=== PATIENT | male | born 1950 | race Caucasian/White ===

== ENCOUNTER → 2017-04-25 | Outpatient (CLI) | payer OTHER ==
[~2017-04-25] MED LIST: IOPAMIDOL (ISOVUE 370) 100 ML BTL IV ONE
[2017-04-25 09:04] LABS: CREATININE 1.1 mg/dL (0.7-1.3); GLOMERULAR FILTRATION RATE > 60
== END ==
LOC: FIMAGING 08:11
PROVIDERS: ATTEND Internal Medicine
DX: I71.2 Thoracic aortic aneurysm, without rupture (principal); R06.02 Shortness of breath
CPT/HCPCS: Q9967

== ENCOUNTER 2018-08-06 13:05 | Inpatient (IN) | payer OTHER ==
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
[2018-08-06] MEDS ORDERED: LET GEL TOPICAL 1 EA SYR TP ONE (13:25)
[2018-08-06] MEDS ORDERED: HYDROmorphONE/DILAUDID 1 MG/ML INJ IVP ONE (13:33)
[2018-08-06 13:39] LABS: PLATELET COUNT 255 10^3/uL (150-400)
[2018-08-06 13:48] LABS: INR 1.05 (0.83-1.16); PROTIME(PATIENT) 13.9 SEC (12.0-15.0)
[2018-08-06] MEDS ORDERED: HYDROmorphONE/DILAUDID 2 MG/ML INJ ONE (13:51)
[2018-08-06] MEDS ORDERED: ONDANSETRON DISINTEGRATING 4 MG TAB PO PRN (14:45)
[2018-08-06] MEDS ORDERED: ONDANSETRON 4 MG/2 ML VIAL IVP PRN ×2 (14:45→20:37)
[2018-08-06] MEDS ORDERED: oxyCODONE IR 5 MG TAB PO ONE (15:29)
[2018-08-06] MEDS ORDERED: oxyCODONE IR 5 MG TAB ONE (15:33)
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
[2018-08-06] MEDS ORDERED: NS 1,000 ML IV SCH (15:45)
--- NOTE | 2018-08-06 15:59 | PDCONSULT ---
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
[2018-08-06] MEDS ORDERED: LR 1,000 ML IV ONE (16:47)
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
[2018-08-06] MEDS ORDERED: BUPIVACAINE 0.5% 30 ML SDV ONE (17:03)
[2018-08-06] MEDS ORDERED: POLYMYXIN B SULFATE 500,000 UNIT/10 ML SYR IRR ONE (17:04)
[2018-08-06] MEDS ORDERED: POLYETHYLENE GLYCOL 3350 17 GM PKT PO PRN (17:23)
[2018-08-06] MEDS ORDERED: BISACODYL 10 MG SUPP PR PRN (17:23)
[2018-08-06] MEDS ORDERED: MAGNESIUM HYDROXIDE 30 ML UDCUP PO PRN (17:23)
[2018-08-06] MEDS ORDERED: fentaNYL 100 MCG/2 ML INJ ONE ×4 (17:58→21:09)
[2018-08-06] MEDS ORDERED: PROPOFOL 200 MG/20 ML VIAL ONE (17:59)
[2018-08-06] MEDS ORDERED: LIDOCAINE 2% 100 MG/5 ML SYR ONE (17:59)
[2018-08-06] MEDS ORDERED: ceFAZolin 2 GM/DEXTROSE 100 ML IV ONE (18:00)
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
[2018-08-06] MEDS ORDERED: MIDAZOLAM 2 MG/2 ML VIAL IVP ONE (18:13)
[2018-08-06] MEDS ORDERED: MIDAZOLAM 2 MG/2 ML VIAL ONE (18:14)
[2018-08-06] MEDS ORDERED: BACITRACIN 50,000 UNITS/10 ML SYR IRR ONE (19:38)
[2018-08-06] MEDS ORDERED: PROMETHAZINE HCL 25 MG/ML INJ IVP PRN (20:37)
[2018-08-06] MEDS ORDERED: ACETAMINOPHEN 500 MG TAB PO PRN (20:37)
[2018-08-06] MEDS ORDERED: oxyCODONE IR 5 MG TAB PO PRN (20:37)
[2018-08-06] MEDS ORDERED: HYDROCODONE/APAP 5/325 TAB PO PRN (20:37)
[2018-08-06] MEDS ORDERED: NALOXONE HCL 0.4 MG/ML INJ IVP PRN (20:37)
--- NOTE | 2018-08-06 20:38 | POSTANESTH ---
Post Anesthetic Evaluation Cardiovascular Status: Normal, Stable, Similar to Pre-Op Cond Respiratory Status: Normal, Stable, Similar to Pre-op Cond. Level of Consciousness/Mental Status: Can Participate in Eval, Alert and Oriented Pain Control: Adequate, Prn Tx Ordered Nausea/Vomiting Control: Adequate, Prn Tx Ordered Complications Possibly Related to Anesthesia: None Noted
[2018-08-06] MEDS ORDERED: D5W 1/2 NS W/ 20 KCl/L 1,000 ML IV SCH (20:45)
[2018-08-06] MEDS: fentaNYL 100 MCG/2 ML INJ IVP PRN ×4 (20:45→21:21)
[2018-08-06] MEDS ORDERED: DIAZEPAM 5 MG/ML 1 ML SYR ONE (21:26)
[2018-08-06] MEDS: DIAZEPAM 5 MG/ML 1 ML SYR IVP PRN ×3 (21:33→22:00)
[2018-08-06] MEDS: oxyCODONE IR 5 MG TAB PO PRN (22:44)
[2018-08-06] MEDS: SENNOSIDES/DOCUSATE SODIUM TAB PO SCH (23:38)
[2018-08-07] MEDS: KETOROLAC 15 MG/1 ML SDV IVP SCH ×4 (00:29→17:42)
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
--- NOTE | 2018-08-07 08:00 | SOAPPROG ---
SOAP Progress Note Assessment/Plan: Assessment: 08/07/18 POD#1 ORIF R IT hip Fx, pain controlled, Hct 38, dressing minimal drainage Plan: 08/07/18 07:58 PT/OT, TDWB ,dressing change, asa, RX for oxy, celebrex, home likely tomorrow. Objective: Vital Signs Temp Pulse Resp BP Pulse Ox 36.8 C 63 15 101/59 L 98 08/07/18 04:00 08/07/18 04:00 08/07/18 04:00 08/07/18 04:00 08/07/18 04:00 Laboratory Results 08/07/18 04:30 08/06/18 08/07/18 08/08/18 05:59 05:59 05:59 Intake Total 2790 Output Total 560 Balance 2230 PT 13.9 SEC (12.0-15.0) 08/06/18 13:30 INR 1.05 (0.83-1.16) 08/06/18 13:30 ICD10 Worksheet Patient Problems: Problems Problem Status Onset Fracture of greater trochanter of right femur Acute
[2018-08-07] MEDS: SENNOSIDES/DOCUSATE SODIUM TAB PO SCH ×2 (08:22→21:13)
[2018-08-07] MEDS: ACETAMINOPHEN 325 MG TAB PO PRN ×3 (08:23→17:41)
[2018-08-07] MEDS: oxyCODONE IR 5 MG TAB PO PRN ×4 (08:27→21:13)
[2018-08-07 09:51] LABS: PLATELET COUNT 242 10^3/uL (150-400)
[2018-08-07] MEDS: ASPIRIN 81 MG CHEWABLE TAB PO SCH (10:22)
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
[2018-08-07] MEDS ORDERED: TEMAZEPAM 15 MG CAP PO PRN (18:19)
[2018-08-08] MEDS: oxyCODONE IR 5 MG TAB PO PRN ×3 (02:42→11:13)
[2018-08-08] MEDS: KETOROLAC 15 MG/1 ML SDV IVP SCH ×3 (05:41→11:13)
[2018-08-08 07:51] VITALS: BP 110/68
[2018-08-08] MEDS: SENNOSIDES/DOCUSATE SODIUM TAB PO SCH (08:12)
[2018-08-08] MEDS: ASPIRIN 81 MG CHEWABLE TAB PO SCH (08:12)
--- NOTE | 2018-08-08 10:23 | ASMTLACE ---
[facility] Length of stay for Answers: 2 days current admission Acuity / Level of Answers: Yes Care: Did the patient have an inpatient admission? # of Emergency department Answers: 1-2 visits in the last 6 months Score: 6 Date Signed: 08/08/2018 10:23 AM Electronically Signed By:KEERTHI Bertrand
--- NOTE | 2018-08-08 10:24 | ASMTCMCOM ---
CM Note CM Note Notes: PT rec home/outpatient. Pt medically stable for d/c, no CM d/c needs identified. Date Signed: 08/08/2018 10:24 AM Electronically Signed By:KEERTHI Bertrand
--- NOTE | 2018-08-08 10:27 | SOAPPROG ---
SOAP Progress Note Assessment/Plan: Assessment: Awake, alert, afebrile. VSS. H/H ok. Post op films look good. OOB and TTWB with crutches. Mild to moderate pain. Dressing clean and dry. Plan: D/c to home later today. Follow up with Dr. Hodge on Aug.19. 08/08/18 10:26 Objective: Vital Signs Temp Pulse Resp BP Pulse Ox 37.1 C 73 14 110/68 93 08/08/18 07:50 08/08/18 07:50 08/08/18 07:50 08/08/18 07:50 08/08/18 07:50 Laboratory Results 08/07/18 09:27 08/07/18 09:27 08/07/18 08/08/18 08/09/18 05:59 05:59 05:59 Intake Total 850 Output Total 1370 250 Balance -520 -250 PT 13.9 SEC (12.0-15.0) 08/06/18 13:30 INR 1.05 (0.83-1.16) 08/06/18 13:30 ICD10 Worksheet Patient Problems: Problems Problem Status Onset Fracture of greater trochanter of right femur Acute
[2018-08-08] MEDS: ACETAMINOPHEN 325 MG TAB PO PRN (11:12)
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
== END 2018-08-08 12:04 | disposition home or self-care (01) | DRG 482 ==
LOC: F3N 16:00 → OBSVTOIN 08-07 08:59
PROVIDERS: ADMIT Internal Medicine; ATTEND Internal Medicine
PROC: 0QS604Z Reposition Right Upper Femur with Internal Fixation Device, Open Approach (ICD-10-PCS; principal; 2018-08-06 17:30)
DX: S72.141A Displaced intertrochanteric fracture of right femur, initial encounter for closed fracture (principal); V18.0XXA Pedal cycle driver injured in noncollision transport accident in nontraffic accident, initial encounter; Y93.55 Activity, bike riding
CPT/HCPCS: 97116-GP; 97161-GP; 97165-GO; 97535-GO; G0378; J0690; J1170; J1885; J2001; J2250; J2270; J2704; J3010; J3360

== ENCOUNTER → 2019-01-12 | Outpatient (CLI) | payer OTHER | LOC: FIMAGING 08:07 | PROVIDERS: ATTEND Internal Medicine Cardiovascular Disease | DX: E78.00 Pure hypercholesterolemia, unspecified (principal); I71.2 Thoracic aortic aneurysm, without rupture ==